=== PATIENT | female | born 1975 | race Caucasian/White ===

== ENCOUNTER 2023-02-22 19:52 | Inpatient (IN) ==
[2023-02-22] MEDS ORDERED: NS 1,000 ML IV 1,000 ML IV ONE (20:33)
--- NOTE | 2023-02-22 20:36 | DR.HYPOGLY ---
HPI Time Seen Time Seen by Provider: 02/22/23 20:31 PCP Primary Care Physician: KIRAN Complaint Chief Complaint:: EMS STATES" PATIENT WAS AMS TODAY AND HAS NOT EATIEN ANYTHING. PT COULD NOT FIND HER GLUCOMETER TODAY AND HAS NOT CHECKED IT AT ALL TODAY. PT FELL EARLIER TODAY IN THE BATH TUB AND FAMILY THOUGHT SHE TOOK TO [facility]." BS IN EMS WAS 579 Self Treatment fo Chief Complaint: NONE COVID-19 Coronavirus risk:travel/contact w/high risk person: No Has patient experienced Coronavirus symptoms: No Nurses notes reviewed Nurses Notes Review: Yes Source History Provided: Patient, Family Member and EMS Mode of Arrival Mode of Arrival: EMS Timing Onset of Chief Complaint: 02/22/23 Came on: Gradually Duration Duration: Unknown Context Symptoms: Generalized weakness History of: Diabetes Prehospital care: None PMH PMH Past Medical History: Yes Past Medical History: Anxiety, Diabetes and Hypertension Past Medical History Comment: FIBRO Past Surgical History: Yes Surgical History: Hysterectomy Past Surgical History Comment: LIPROTRIPSY Family History History of Family Medical Conditions: Yes Family Medical History: Diabetes Mellitus Social History Does any household member use tobacco: No Do you use any recreational Drugs:: No Lives With: Family Lives Where: Home Travel Risk Coronavirus risk:travel/contact w/high risk person: No Has patient experienced Coronavirus symptoms: No Infectious screening In the last 2 months have you had wt loss of >10#?: NO Have you had fever, night sweats or hemotysis?: No Have you traveled outside the country in the last 6 months?: No Isolation: Standard ROS Review of Systems Constitutional: Malaise PE Vital Signs Vitals: Vital Signs Temperature 94.7 F Pulse Rate 105 Respiratory Rate 40 Blood Pressure 121/59 O2 Sat by Pulse Oximetry 97 General Limitations: No Limitations General Appearance: In No Apparent Distress and Lethargic Eyes Eye exam: Normal Appearance, PERRL and EOMI ENT ENT Exam: Normal Exam Neck Neck Exam: Normal Inspection Chest Chest Inspection: Normal Inspection Respiratory Respiratory Exam: Normal Lung Sounds Bilat Cardiovascular Cardiovascular Exam: Regular Rate Abdominal Exam Abdominal Exam: Normal Inspection Extremities Extremities Exam: Normal Inspection Back Back Exam: Normal Inspection Neurologic Neurological Exam: Alert, Oriented X3, CN II-XII Intact, Normal Gait and Reflexes Normal Psychiatric Psychiatric Exam: Normal Affect and Normal Mood Skin Skin Exam: Warm, Dry and Intact COURSE Treatment Treatment: Labs, Insulin, IVFs Reevaluation 1st: Improved ROR Labs Reviewed Laboratory Results Reviewed?: Yes 02/22/23 20:40 02/22/23 20:40 Laboratory: WBC 13.9 X10^3/uL (3.6-10.0) H 02/22/23 20:40 RBC 4.78 X10^6/uL (3.5-5.4) 02/22/23 20:40 Hgb 13.4 g/dL (12.0-16.0) 02/22/23 20:40 Hct 47.1 % (36.0-47.0) H 02/22/23 20:40 MCV 98.6 fL (80.0-100.0) 02/22/23 20:40 MCH 28.0 pg (27.0-34.0) 02/22/23 20:40 MCHC 28.4 g/dL (33.0-35.0) L 02/22/23 20:40 RDW 15.8 % (11.6-16.5) 02/22/23 20:40 Plt Count 256 X10^3/uL (150.0-450.0) 02/22/23 20:40 MPV 10.6 fL (7.4-11.0) 02/22/23 20:40 Neut % (Auto) 88.1 % (42.0-75.0) H 02/22/23 20:40 Lymph % (Auto) 7.5 % (21.0-51.0) L 02/22/23 20:40 [place] % (Auto) 3.8 % (0.0-13.0) 02/22/23 20:40 Eos % (Auto) 0.0 % (0.9-2.9) L 02/22/23 20:40 Baso % (Auto) 0.6 % (0.2-1.0) 02/22/23 20:40 Neut # (Auto) 12.2 x10^3/uL (2.2-4.8) H 02/22/23 20:40 Lymph # (Auto) 1.0 X10^3/uL (1.3-2.9) L 02/22/23 20:40 [place] # (Auto) 0.5 x10^3/uL (0.3-0.8) 02/22/23 20:40 Eos # (Auto) 0.0 x10^3/uL (0.0-0.2) 02/22/23 20:40 Baso # (Auto) 0.1 X10^3/uL (0.0-0.1) 02/22/23 20:40 Absolute Nucleated RBC 0.1 /100WBC 02/22/23 20:40 Sodium 113 mmol/L (136-145) L* 02/22/23 20:40 Corrected Sodium 143 mmol/L (136-145) 02/22/23 20:40 Potassium 6.9 mmol/L (3.5-5.1) H* 02/22/23 20:40 Chloride 82 mmol/L (98-107) L 02/22/23 20:40 Carbon Dioxide 6.8 mmol/L (21-32) L* 02/22/23 20:40 BUN 38 mg/dL (7-18) H 02/22/23 20:40 Creatinine 1.94 mg/dL (0.55-1.02) H 02/22/23 20:40 Est GFR (MDRD) Af Amer 35 (>60) L 02/22/23 20:40 Est GFR (MDRD) Non-Af 29 (>60) L 02/22/23 20:40 Glucose 1337 mg/dL (65-99) H* 02/22/23 20:40 POC Glucose (mg/dL) > 600 mg/dL (65-99) 02/22/23 20:19 Calcium 7.8 mg/dL (8.5-10.1) L 02/22/23 20:40 Corrected Calcium 8.7 mg/dL (8.5-10.1) 02/22/23 20:40 Total Bilirubin 0.80 mg/dL (0.2-1.0) 02/22/23 20:40 AST 25 Units/L (15-37) 02/22/23 20:40 ALT 103 Units/L (12-78) H 02/22/23 20:40 Alkaline Phosphatase 205 Units/L (46-116) H 02/22/23 20:40 Total Protein 7.2 g/dL (6.4-8.2) 02/22/23 20:40 Albumin 2.9 g/dL (3.4-5.0) L 02/22/23 20:40 Globulin 4.3 g/dL (2.5-4.5) 02/22/23 20:40 Albumin/Globulin Ratio 0.7 Ratio (1.1-2.1) L 02/22/23 20:40 Specimen Type Clean catch urine 02/22/23 21: Urine Color Straw (YELLOW) 02/22/23: Urine Appearance Clear (CLEAR) 02/22/23: Urine pH 5.0 (5.0 - 8.0) 02/22/23: Ur Specific [place] 1.015 (1.000-1.030) 02/22/23: Urine Protein 2+ (NEGATIVE) 02/22/23: Urine Glucose (UA) 4+ (NEGATIVE) 02/22/23: Urine Ketones 4+ (NEGATIVE) 02/22/23: Urine Blood 2+ (NEGATIVE) 02/22/23: Urine Nitrite Negative (NEGATIVE) 02/22/23: Urine Bilirubin Negative (NEGATIVE) 02/22/23 21: Urine Urobilinogen Normal (NORMAL) 02/22/23: Ur Leukocyte Esterase Negative (NEGATIVE) 02/22/23: Urine RBC 0-2 /HPF (0-3) 02/22/23: Urine WBC None seen /HPF (0-5) 02/22/23 21: Ur Squamous Epith Cells Rare /HPF (NEGATIVE) 02/22/23 21: Amorphous Sediment 1+ /HPF (NEGATIVE) 02/22/23: Urine Bacteria Trace /HPF (NEGATIVE) 02/22/23 21: Urine Mucus Few /HPF (NEGATIVE) 02/22/23: Ur Culture Indicated? No/not indicated 02/22/23: Urine Opiates Screen Negative (NEG=<300) 02/22/23: Urine Methadone Screen TNP 02/22/23: Ur Barbiturates Screen Negative (NEG=<200) 02/22/23: Ur Phencyclidine Scrn Negative (NEG=<25) 02/22/23: Ur Amphetamines Screen Negative (NEG=<1000) 02/22/23: U Benzodiazepines Scrn Negative (NEG=<200) 02/22/23 21:23 Urine Cocaine Screen Negative (NEG=<300) 02/22/23 21:23 U Marijuana (THC) Screen Negative (NEG=<50) 02/22/23 21:23 Acetone, Semi-Quant Large (NEGATIVE) H 02/22/23 20:40 XRAY XRAY Interpreted by: Radiologist Opioid Opioid Risk Tool Age (Ja box if 16-45): No History of Preadolescent Sexual Abuse: No Total: 0 Total Score Risk Category: Low Risk Copyright: Gurdeep DUMONT predicting aberrant behaviors Discharge Plan Diagnosis Discharge Problem: Hyperglycemia Discharge Plan Patient Disposition: ADMITTED INPATIENT Condition: Stable Prescriptions: No Action cyclobenzaprine 10 mg tablet 10 mg PO BID PRN (Reason: muscle spasm) gabapentin 600 mg tablet 600 mg PO TID PRN (Reason: pain) diclofenac sodium 75 mg tablet,delayed release (DR/EC) 75 mg PO BID PRN (Reason: pain) lisinopril 5 mg tablet 5 mg PO QDAY metoprolol succinate 25 mg tablet extended release 24 hr 25 mg PO QDAY glipizide 5 mg tablet 5 mg PO BID insulin aspart U-100 [Novolog FlexPen U-100 Insulin] 100 unit/mL (3 mL) insulin pen 40 unit SUBCUT TID duloxetine 60 mg capsule,delayed release(DR/EC) 60 mg PO QDAY insulin degludec [Tresiba FlexTouch U-200] 200 unit/mL (3 mL) insulin pen 80 unit SUBCUT QDAY Farxiga 5 mg tablet 5 mg PO QDAY Ozempic 0.25 mg or 0.5 mg (2 mg/3 mL) pen injector 0.2 mg SUBCUT QWEEK Health Concerns: Post Hospitalization: new medications and changes needed to prevent readmission or further decline. Pt educated and given instructions on all concerns. Plan of Treatment: Continue with present treatment and follow up plan. Pt is to keep follow up appointment as instructed and take medications as ordered. Follow ups/Referrals Follow ups/Referrals: NFD,None [Primary Care Provider] - 3 days
[2023-02-22] MEDS ORDERED: NS 1,000 ML IV 1,000 ML ONE ×4 (20:37→23:04)
[2023-02-22 20:55] LABS: BASOPHILS # (AUTO) 0.1 X10^3/uL (0.0-0.1); MONOCYTES # (AUTO) 0.5 x10^3/uL (0.3-0.8)
[2023-02-22 20:59] LABS: MEAN CORPUSCULAR HGB CONC 28.4 g/dL (33.0-35.0); PLATELET COUNT 256 X10^3/uL (150.0-450.0)
[2023-02-22 21:06] LABS: ALBUMIN 2.9 g/dL (3.4-5.0); CALCIUM 7.8 mg/dL (8.5-10.1); COR CA(FOR HYPOALB) 8.7 mg/dL (8.5-10.1); CREATININE 1.94 mg/dL (0.55-1.02); TOTAL PROTEIN 7.2 g/dL (6.4-8.2)
[2023-02-22] MEDS ORDERED: NovoLIN R (or HumuLIN R) ONE (21:14)
[2023-02-22 21:18] LABS: HEMOGLOBIN 13.4 g/dL (12.0-16.0); RED BLOOD COUNT 4.78 X10^6/uL (3.5-5.4); WHITE BLOOD COUNT 13.9 X10^3/uL (3.6-10.0)
[2023-02-22 21:19] LABS: BASOPHILS % (AUTO) 0.6 % (0.2-1.0); HEMATOCRIT 47.1 % (36.0-47.0); LYMPHOCYTES % (AUTO) 7.5 % (21.0-51.0); MEAN CORPUSCULAR VOLUME 98.6 fL (80.0-100.0); MEAN PLATELET VOLUME 10.6 fL (7.4-11.0); MONOCYTES % (AUTO) 3.8 % (0.0-13.0); NEUTROPHILS # (AUTO) 12.2 x10^3/uL (2.2-4.8); NEUTROPHILS % (AUTO) 88.1 % (42.0-75.0); RED CELL DISTRIBUTION WIDTH 15.8 % (11.6-16.5)
[2023-02-22 21:28] LABS: CARBON DIOXIDE 6.8 mmol/L (21-32); POTASSIUM 6.9 mmol/L (3.5-5.1)
[2023-02-22] MEDS: NS 1,000 ML IV 1,000 ML IV SCH (21:28)
[2023-02-22] MEDS: NovoLIN R (or HumuLIN R) SUBCUT PRN (21:32)
[2023-02-22] MEDS ORDERED: SODIUM BICARBONATE 8.4% INJ ADULT 50 ML in NS 250 ML IV 250 ML IV ONE (21:37)
[2023-02-22 21:39] LABS: BILIRUBIN,URINE NEGATIVE (NEGATIVE); BLOOD/HEMOGLOBIN,URINE 2+ (NEGATIVE); GLUCOSE, URINE 4+ (NEGATIVE); KETONES,URINE 4+ (NEGATIVE); LEUKOCYTE ESTERASE ,URINE NEGATIVE (NEGATIVE); NITRITES,URINE NEGATIVE (NEGATIVE); PROTEIN,URINE 2+ (NEGATIVE); UROBILINOGEN,URINE NORMAL (NORMAL)
[2023-02-22] MEDS ORDERED: KAYEXALATE SUSP ONE (21:42)
[2023-02-22] MEDS ORDERED: SODIUM BICARBONATE 8.4% INJ ADULT ONE (21:42)
[2023-02-22] MEDS ORDERED: NS 250 ML IV 250 ML IV ONE (21:42)
[2023-02-22] MEDS ORDERED: MYXREDLIN 100 UNIT/100 ML BAG 100 UNIT/100 ML PLAST..BAG IV ONE (21:54)
[2023-02-22 21:57] LABS: APPEARANCE,URINE CLEAR (CLEAR); COLOR,URINE STRAW (YELLOW); RBC,URINE 0-2 /HPF (0-3)
[2023-02-22 21:58] LABS: BACTERIA,URINE TRACE /HPF (NEGATIVE); SQUAMOUS EPITHELIAL CELL,UR RARE /HPF (NEGATIVE)
[2023-02-22] MEDS ORDERED: KAYEXALATE SUSP PO SCH (22:00)
--- NOTE | 2023-02-22 22:39 | EKG ---
Test Reason : Hyperkalemia Blood Pressure : */* mmHG Vent. Rate : 109 BPM Atrial Rate : 109 BPM P-R Int : 148 ms QRS Dur : 88 ms QT Int : 354 ms P-R-T Axes : 51 30 43 degrees QTc Int : 476 ms Sinus tachycardia Poor R-wave progression Otherwise normal ECG No previous ECGs available Confirmed by Bay Marti MD ([id number]) on 02/23/2023 1:10:44 PM Referred By: Confirmed By: Bay Marti MD
[2023-02-22 23:07] LABS: ABG HCO3 < 3.0 mmol/L (22-26)
[2023-02-22] MEDS: MYXREDLIN 100 UNIT/100 ML BAG 100 UNIT/100 ML PLAST..BAG IV PRN (23:25)
[2023-02-23 02:54] VITALS: BMI 33.4
[2023-02-23 04:27] LABS: BASOPHILS # (AUTO) 0.1 X10^3/uL (0.0-0.1); BASOPHILS % (AUTO) 0.9 % (0.2-1.0); HEMATOCRIT 41.6 % (36.0-47.0); HEMOGLOBIN 13.7 g/dL (12.0-16.0); LYMPHOCYTES # (AUTO) 1.3 X10^3/uL (1.3-2.9); LYMPHOCYTES % (AUTO) 12.6 % (21.0-51.0); MEAN CORPUSCULAR VOLUME 84.9 fL (80.0-100.0); MEAN PLATELET VOLUME 9.9 fL (7.4-11.0); MONOCYTES # (AUTO) 0.7 x10^3/uL (0.3-0.8); MONOCYTES % (AUTO) 6.7 % (0.0-13.0); NEUTROPHILS # (AUTO) 8.5 x10^3/uL (2.2-4.8); NEUTROPHILS % (AUTO) 79.8 % (42.0-75.0); PLATELET COUNT 180 X10^3/uL (150.0-450.0); RED CELL DISTRIBUTION WIDTH 14.2 % (11.6-16.5); WHITE BLOOD COUNT 10.7 X10^3/uL (3.6-10.0)
[2023-02-23 04:41] LABS: ALBUMIN 2.7 g/dL (3.4-5.0); CALCIUM 7.7 mg/dL (8.5-10.1); COR CA(FOR HYPOALB) 8.7 mg/dL (8.5-10.1); CREATININE 1.78 mg/dL (0.55-1.02); POTASSIUM 3.2 mmol/L (3.5-5.1); TOTAL PROTEIN 6.6 g/dL (6.4-8.2)
[2023-02-23 04:43] LABS: CARBON DIOXIDE 11.1 mmol/L (21-32)
[2023-02-23] MEDS: NS 1,000 ML IV 1,000 ML IV SCH ×3 (06:47→22:10)
[2023-02-23] MEDS: MYXREDLIN 100 UNIT/100 ML BAG 100 UNIT/100 ML PLAST..BAG IV PRN (06:47)
[2023-02-23] MEDS ORDERED: KAYEXALATE SUSP PO SCH (09:00)
[2023-02-23 09:17] LABS: ABG ALLEN TEST POS; ABG BASE EXCESS -11.1 mmol/L (-2.0-2.0); ABG HCO3 15.4 mmol/L (22-26)
[2023-02-23] MEDS: PROTONIX INJ 40 MG VIAL IVP SCH (13:49)
--- NOTE | 2023-02-23 17:35 | RAD ---
EXAM:CHEST, 1 VIEWHISTORY:ASPIRATION;COMPARISON:None. .br.br.br.br.br airspace disease.Pleural space: no pneumothorax or effusion.Bones: the bony thorax appears age appropriate.IMPRESSION:1. Borderline heart size.THIS IS AN ELECTRONICALLY VERIFIED FINAL [id number]/23/2023 5:32 PM - Electronically signed by Alan Samano DO
[2023-02-23] MEDS: SNACK - Diabetic Appropriate PO SCH (20:32)
--- NOTE | 2023-02-23 21:43 | DR.H&P ---
H&P History & Physical for Day of: H&P Date: 02/23/23 Chief Complaint Chief Complaint: Altered mental status Allergies Allergies Allergy/AdvReac Type Severity Reaction Status Date / Time Sulfa (Sulfonamide Allergy Verified 02/22/23 22:04 Antibiotics) [SULFA] History of Present Illness History of Present Illness: This is a 47-year-old white female who developed altered mental status last night. EMS was called because the patient's family thought she took too much medication. She was found to have a blood sugar in the 500s. Because of this the decided to bring him to [facility] emergency department. When he checked her blood sugar there it was approximately 1300 and something. Serum acetone was checked and showed that she had a large amount of serum acetone. She was started on insulin drip protocol and started on IV fluid. We elected to go ahead admitted to the ICU so we could continue to run the insulin drip per protocol and give her bicarbonate to her IV fluid. This morning when I saw the patient she was not arousable but she was moving around in bed. Hyperkalemia that she had in the emergency department last night has resolved this morning secondary to the IV insulin that she was given. She had Kayexalate ordered but they were not able to give it to her as she never woke up enough for her to receive it. In the meantime we will continue the insulin drip per protocol along with IV fluids. We will plan on repeating routine labs tomorrow morning along with a serum acetone and ABG. We will also check a chest x-ray to make sure she does not have underlying respiratory infection. Urinalysis was done and it shows that she does not have a UTI. Past Medical History Past Medical History: Anxiety, Diabetes and Hypertension Past Surgical History Surgical History: Hysterectomy Family History Family Medical History: Diabetes Mellitus, VT and Coronary Artery Disease Social History Does patient currently use any type of tobacco product: No Have you used tobacco products in the last 12 months: No Type of Tobacco Use: None Does any household member use tobacco: No Alcohol Use: None Drug Use: None Medications Home Medications: Home Medications Medication Instructions Recorded Confirmed Type cyclobenzaprine 10 mg tablet 10 mg PO BID PRN muscle spasm 02/22/23 02/22/23 History dapagliflozin propanediol 5 mg 5 mg PO QDAY 02/22/23 02/22/23 History tablet (Farxiga) diclofenac sodium 75 mg 75 mg PO BID PRN pain 02/22/23 02/22/23 History tablet,delayed release duloxetine 60 mg capsule,delayed 60 mg PO QDAY 02/22/23 02/22/23 History release gabapentin 600 mg tablet 600 mg PO TID PRN pain 02/22/23 02/22/23 History glipizide 5 mg tablet 5 mg PO BID 02/22/23 02/22/23 History insulin aspart U-100 100 unit/mL 40 unit subcut TID 02/22/23 02/22/23 History (3 mL) subcutaneous pen (Novolog FlexPen U-100 Insulin aspart) insulin degludec 200 unit/mL (3 80 unit subcut QDAY 02/22/23 02/22/23 History mL) subcutaneous pen (Tresiba FlexTouch U-200 insulin) lisinopril 5 mg tablet 5 mg PO QDAY 02/22/23 02/22/23 History metoprolol succinate 25 mg 25 mg PO QDAY 02/22/23 02/22/23 History tablet,extended release 24 hr semaglutide 0.25 mg or 0.5 mg (2 0.2 mg subcut QWEEK 02/22/23 02/22/23 History mg/3 mL) subcutaneous pen injector (Ozempic) Labs 02/23/23 04:13 02/23/23 04:13 Labs: Laboratory WBC 10.7 X10^3/uL (3.6-10.0) H 02/23/23 04:13 RBC 4.90 X10^6/uL (3.5-5.4) 02/23/23 04:13 Hgb 13.7 g/dL (12.0-16.0) 02/23/23 04:13 Hct 41.6 % (36.0-47.0) 02/23/23 04:13 MCV 84.9 fL (80.0-100.0) 02/23/23 04:13 MCH 28.0 pg (27.0-34.0) 02/23/23 04:13 MCHC 33.0 g/dL (33.0-35.0) 02/23/23 04:13 RDW 14.2 % (11.6-16.5) 02/23/23 04:13 Plt Count 180 X10^3/uL (150.0-450.0) 02/23/23 04:13 MPV 9.9 fL (7.4-11.0) 02/23/23 04:13 Neut % (Auto) 79.8 % (42.0-75.0) H 02/23/23 04:13 Lymph % (Auto) 12.6 % (21.0-51.0) L 02/23/23 04:13 [place] % (Auto) 6.7 % (0.0-13.0) 02/23/23 04:13 Eos % (Auto) 0.0 % (0.9-2.9) L 02/23/23 04:13 Baso % (Auto) 0.9 % (0.2-1.0) 02/23/23 04:13 Neut # (Auto) 8.5 x10^3/uL (2.2-4.8) H 02/23/23 04:13 Lymph # (Auto) 1.3 X10^3/uL (1.3-2.9) 02/23/23 04:13 [place] # (Auto) 0.7 x10^3/uL (0.3-0.8) 02/23/23 04:13 Eos # (Auto) 0.0 x10^3/uL (0.0-0.2) 02/23/23 04:13 Baso # (Auto) 0.1 X10^3/uL (0.0-0.1) 02/23/23 04:13 Absolute Nucleated RBC 0.0 /100WBC 02/23/23 04:13 Sample Site [place] 02/23/23 09:12 ABG pH 7.240 (7.35-7.45) L 02/23/23 09:12 ABG pCO2 36.0 mmHg (35.0-45.0) 02/23/23 09:12 ABG pO2 88.0 mmHg (80.0-100.0) 02/23/23 09:12 ABG HCO3 15.4 mmol/L (22-26) L* 02/23/23 09:12 ABG O2 Saturation 95.0 % (90-100) 02/23/23 09:12 ABG Base Excess -11.1 mmol/L (-2.0-2.0) L 02/23/23 09:12 Gus Test Pos 02/23/23 09:12 A-a Gradient 67.0 mmHg 02/23/23 09:12 FiO2 28.0 02/23/23 09:12 Blood Gas Comments Pt rosemary well elj 02/23/23 09:12 Sodium 133 mmol/L (136-145) L 02/23/23 04:13 Corrected Sodium 147 mmol/L (136-145) H 02/23/23 04:13 Potassium 3.2 mmol/L (3.5-5.1) L 02/23/23 04:13 Chloride 101 mmol/L (98-107) 02/23/23 04:13 Carbon Dioxide 11.1 mmol/L (21-32) L* 02/23/23 04:13 BUN 42 mg/dL (7-18) H 02/23/23 04:13 Creatinine 1.78 mg/dL (0.55-1.02) H 02/23/23 04:13 Est GFR (MDRD) Af Amer 39 (>60) L 02/23/23 04:13 Est GFR (MDRD) Non-Af 32 (>60) L 02/23/23 04:13 Glucose 665 mg/dL (65-99) H* 02/23/23 04:13 POC Glucose (mg/dL) 177 mg/dL (65-99) H 02/23/23 21:20 Calcium 7.7 mg/dL (8.5-10.1) L 02/23/23 04:13 Corrected Calcium 8.7 mg/dL (8.5-10.1) 02/23/23 04:13 Magnesium 2.4 mg/dL (2.0-2.9) 02/23/23 04:13 Total Bilirubin 0.50 mg/dL (0.2-1.0) 02/23/23 04:13 AST 18 Units/L (15-37) 02/23/23 04:13 ALT 84 Units/L (12-78) H 02/23/23 04:13 Alkaline Phosphatase 170 Units/L (46-116) H 02/23/23 04:13 Total Protein 6.6 g/dL (6.4-8.2) 02/23/23 04:13 Albumin 2.7 g/dL (3.4-5.0) L 02/23/23 04:13 Globulin 3.9 g/dL (2.5-4.5) 02/23/23 04:13 Albumin/Globulin Ratio 0.7 Ratio (1.1-2.1) L 02/23/23 04:13 Specimen Type Clean catch urine 02/22/23 21: Urine Color Straw (YELLOW) 02/22/23: Urine Appearance Clear (CLEAR) 02/22/23 21: Urine pH 5.0 (5.0 - 8.0) 02/22/23 21: Ur Specific [place] 1.015 (1.000-1.030) 02/22/23: Urine Protein 2+ (NEGATIVE) 02/22/23: Urine Glucose (UA) 4+ (NEGATIVE) 02/22/23: Urine Ketones 4+ (NEGATIVE) 02/22/23 21: Urine Blood 2+ (NEGATIVE) 02/22/23 21: Urine Nitrite Negative (NEGATIVE) 02/22/23: Urine Bilirubin Negative (NEGATIVE) 02/22/23 21: Urine Urobilinogen Normal (NORMAL) 02/22/23: Ur Leukocyte Esterase Negative (NEGATIVE) 02/22/23: Urine RBC 0-2 /HPF (0-3) 02/22/23 21: Urine WBC None seen /HPF (0-5) 02/22/23 21: Ur Squamous Epith Cells Rare /HPF (NEGATIVE) 02/22/23 21: Amorphous Sediment 1+ /HPF (NEGATIVE) 02/22/23 21: Urine Bacteria Trace /HPF (NEGATIVE) 02/22/23 21: Urine Mucus Few /HPF (NEGATIVE) 02/22/23 21: Ur Culture Indicated? No/not indicated 02/22/23: Urine Opiates Screen Negative (NEG=<300) 02/22/23 21: Urine Methadone Screen TNP 02/22/23 21: Ur Barbiturates Screen Negative (NEG=<200) 02/22/23 21: Ur Phencyclidine Scrn Negative (NEG=<25) 02/22/23 21: Ur Amphetamines Screen Negative (NEG=<1000) 02/22/23 21: U Benzodiazepines Scrn Negative (NEG=<200) 02/22/23 21:23 Urine Cocaine Screen Negative (NEG=<300) 02/22/23 21:23 U Marijuana (THC) Screen Negative (NEG=<50) 02/22/23 21:23 Acetone, Semi-Quant Small (NEGATIVE) H 02/23/23 04:13 Review of Systems Constitutional: Other (Unable to obtain review of systems as the patient is not mentally alert enough at this time to answer questions.) Physical Exam Vital Signs: Vital Signs Temperature 97.8 F Temperature 97.6 F Pulse Rate 97 Pulse Rate 101 Pulse Rate 102 Pulse Rate 103 Pulse Rate 102 Pulse Rate 96 Pulse Rate 104 Pulse Rate 102 Pulse Rate 101 Pulse Rate 104 Pulse Rate 101 Pulse Rate 100 Pulse Rate 101 Pulse Rate 104 Pulse Rate 105 Pulse Rate 108 Pulse Rate 102 Pulse Rate 104 Pulse Rate 107 Pulse Rate 109 Pulse Rate 110 Pulse Rate 110 Respiratory Rate 22 Respiratory Rate 15 Respiratory Rate 21 Respiratory Rate 22 Respiratory Rate 20 Respiratory Rate 20 Respiratory Rate 23 Respiratory Rate 23 Respiratory Rate 19 Respiratory Rate 21 Respiratory Rate 18 Respiratory Rate 19 Respiratory Rate 20 Respiratory Rate 22 Respiratory Rate 21 Respiratory Rate 22 Respiratory Rate 30 Respiratory Rate 27 Respiratory Rate 27 Respiratory Rate 23 Respiratory Rate 25 Respiratory Rate 25 Blood Pressure 133/60 Blood Pressure 134/63 Blood Pressure 128/62 Blood Pressure 127/63 Blood Pressure 117/58 Blood Pressure 113/58 Blood Pressure 127/62 Blood Pressure 121/61 O2 Sat by Pulse Oximetry 100 O2 Sat by Pulse Oximetry 99 O2 Sat by Pulse Oximetry 99 O2 Sat by Pulse Oximetry 100 O2 Sat by Pulse Oximetry 98 O2 Sat by Pulse Oximetry 98 O2 Sat by Pulse Oximetry 99 O2 Sat by Pulse Oximetry 100 O2 Sat by Pulse Oximetry 99 O2 Sat by Pulse Oximetry 100 O2 Sat by Pulse Oximetry 100 O2 Sat by Pulse Oximetry 98 O2 Sat by Pulse Oximetry 99 O2 Sat by Pulse Oximetry 99 O2 Sat by Pulse Oximetry 100 O2 Sat by Pulse Oximetry 100 O2 Sat by Pulse Oximetry 100 O2 Sat by Pulse Oximetry 100 O2 Sat by Pulse Oximetry 99 O2 Sat by Pulse Oximetry 99 O2 Sat by Pulse Oximetry 99 O2 Sat by Pulse Oximetry 99 Oriented: Not Oriented and Unable to test Eyes: Normal Nose: Normal Respiratory: Clear Throughout Cardiovascular: Normal Auscultation: Bowel Sounds: Normal Palpation: Normal Tenderness: Normal Skin: Decreased [place] Musculoskeletal: Normal Psychiatric: Other (Unable to take a psychiatric evaluation as patient is not verbally communicating now.) Assessment/Plan (1) Diabetic ketoacidosis: Status: Acute Plan: Continue insulin drip per protocol. Check ABG and serum acetone to [place] morning. (2) Hyperkalemia: Status: Acute Plan: The patient's hyperkalemia has resolved since he was checked in the emergency department last night. Recheck potassium in the morning. (3) Hyponatremia: Status: Acute Plan: Normal saline IV fluid hydration. (4) Hyperglycemia: Status: Acute Plan: Insulin drip per protocol. (5) Coronary artery disease: Status: Acute Review H&P Reviewed: Yes Patient was examined?: Yes
[2023-02-24 04:59] LABS: ABG BASE EXCESS -7.5 mmol/L (-2.0-2.0)
[2023-02-24 05:00] LABS: ABG ALLEN TEST POS; ABG HCO3 17.3 mmol/L (22-26)
[2023-02-24 05:31] LABS: BASOPHILS % (AUTO) 0.3 % (0.2-1.0); EOSINOPHILS % (AUTO) 0.1 % (0.9-2.9); HEMATOCRIT 38.3 % (36.0-47.0); LYMPHOCYTES # (AUTO) 1.6 X10^3/uL (1.3-2.9); LYMPHOCYTES % (AUTO) 22.2 % (21.0-51.0); MEAN CORPUSCULAR HEMOGLOBIN 27.9 pg (27.0-34.0); MEAN CORPUSCULAR HGB CONC 33.8 g/dL (33.0-35.0); MEAN CORPUSCULAR VOLUME 82.4 fL (80.0-100.0); MEAN PLATELET VOLUME 9.5 fL (7.4-11.0); MONOCYTES # (AUTO) 0.4 x10^3/uL (0.3-0.8); NEUTROPHILS # (AUTO) 5.3 x10^3/uL (2.2-4.8); NEUTROPHILS % (AUTO) 71.4 % (42.0-75.0); PLATELET COUNT 143 X10^3/uL (150.0-450.0); RED BLOOD COUNT 4.65 X10^6/uL (3.5-5.4); RED CELL DISTRIBUTION WIDTH 14.5 % (11.6-16.5); WHITE BLOOD COUNT 7.4 X10^3/uL (3.6-10.0)
[2023-02-24 05:36] LABS: SERUM ACETONE SMALL (NEGATIVE)
[2023-02-24 05:58] LABS: ALANINE AMINOTRANSFERASE 67 Units/L (12-78); ALBUMIN 2.5 g/dL (3.4-5.0); ALKALINE PHOSPHATASE 147 Units/L (46-116); ASPARTATE AMINO TRANSFERASE 23 Units/L (15-37); BLOOD UREA NITROGEN 21 mg/dL (7-18); CALCIUM 7.4 mg/dL (8.5-10.1); CARBON DIOXIDE 16.8 mmol/L (21-32); CHLORIDE 108 mmol/L (98-107); COR CA(FOR HYPOALB) 8.6 mg/dL (8.5-10.1); COR NA(FOR HYPERGLY) 141 mmol/L (136-145); CREATININE 0.95 mg/dL (0.55-1.02); GLUCOSE 191 mg/dL (65-99); SODIUM 139 mmol/L (136-145); TOTAL PROTEIN 6.2 g/dL (6.4-8.2); eGFR NON BLACK RACES > 60 (>60)
[2023-02-24 06:02] LABS: POTASSIUM 2.7 mmol/L (3.5-5.1)
[2023-02-24] MEDS ORDERED: CONSULT PHARMACY - POTASSIUM & MAGNESIUM XX SCH ×2 (07:00→15:00)
[2023-02-24] MEDS: K-DUR TAB 20 MEQ PO SCH ×3 (09:14→14:48)
[2023-02-24] MEDS: PROTONIX INJ 40 MG VIAL IVP SCH (09:15)
[2023-02-24] MEDS: MYXREDLIN 100 UNIT/100 ML BAG 100 UNIT/100 ML PLAST..BAG IV PRN (12:44)
[2023-02-24] MEDS ORDERED: POTASSIUM CHL 60 MEQ/NS 0.45% 500 ML 60 MEQ/500 ML BAG IV ONE (15:00)
[2023-02-24] MEDS: NS 1,000 ML IV 1,000 ML IV SCH (15:28)
[2023-02-24] MEDS: SNACK - Diabetic Appropriate PO SCH (20:15)
[2023-02-25 04:52] LABS: BASOPHILS # (AUTO) 0.1 X10^3/uL (0.0-0.1); BASOPHILS % (AUTO) 0.9 % (0.2-1.0); EOSINOPHILS % (AUTO) 0.2 % (0.9-2.9); HEMATOCRIT 35.6 % (36.0-47.0); LYMPHOCYTES # (AUTO) 2.1 X10^3/uL (1.3-2.9); LYMPHOCYTES % (AUTO) 36.2 % (21.0-51.0); MEAN CORPUSCULAR HEMOGLOBIN 27.5 pg (27.0-34.0); MEAN CORPUSCULAR HGB CONC 33.7 g/dL (33.0-35.0); MEAN CORPUSCULAR VOLUME 81.4 fL (80.0-100.0); MEAN PLATELET VOLUME 9.2 fL (7.4-11.0); MONOCYTES # (AUTO) 0.4 x10^3/uL (0.3-0.8); MONOCYTES % (AUTO) 6.8 % (0.0-13.0); NEUTROPHILS # (AUTO) 3.2 x10^3/uL (2.2-4.8); NEUTROPHILS % (AUTO) 55.9 % (42.0-75.0); PLATELET COUNT 121 X10^3/uL (150.0-450.0); RED BLOOD COUNT 4.38 X10^6/uL (3.5-5.4); RED CELL DISTRIBUTION WIDTH 14.4 % (11.6-16.5); WHITE BLOOD COUNT 5.7 X10^3/uL (3.6-10.0)
[2023-02-25 05:00] LABS: ALANINE AMINOTRANSFERASE 46 Units/L (12-78); ALBUMIN 2.4 g/dL (3.4-5.0); ALKALINE PHOSPHATASE 132 Units/L (46-116); ASPARTATE AMINO TRANSFERASE 22 Units/L (15-37); BLOOD UREA NITROGEN 8 mg/dL (7-18); CALCIUM 7.6 mg/dL (8.5-10.1); CARBON DIOXIDE 21.4 mmol/L (21-32); CHLORIDE 107 mmol/L (98-107); COR CA(FOR HYPOALB) 8.9 mg/dL (8.5-10.1); COR NA(FOR HYPERGLY) 141 mmol/L (136-145); CREATININE 0.58 mg/dL (0.55-1.02); GLUCOSE 164 mg/dL (65-99); SODIUM 139 mmol/L (136-145); eGFR NON BLACK RACES > 60 (>60)
[2023-02-25 05:14] LABS: POTASSIUM 2.8 mmol/L (3.5-5.1)
[2023-02-25] MEDS ORDERED: CONSULT PHARMACY - POTASSIUM & MAGNESIUM XX SCH (06:00)
[2023-02-25] MEDS: NS 1,000 ML IV 1,000 ML IV SCH ×3 (06:29→18:45)
[2023-02-25] MEDS: PROTONIX INJ 40 MG VIAL IVP SCH (08:23)
[2023-02-25] MEDS: NS + KCL 20 MEQ/L 1,000 ML IV SCH ×2 (08:24→17:01)
[2023-02-25] MEDS ORDERED: K-DUR TAB 20 MEQ PO SCH (09:00)
[2023-02-25] MEDS: ZESTRIL TAB 5 MG PO SCH (10:24)
[2023-02-25] MEDS: LEVEMIR SC SCH (10:24)
[2023-02-25] MEDS: CYMBALTA PO SCH (10:24)
[2023-02-25] MEDS: FARXIGA PO SCH (10:25)
[2023-02-25] MEDS: TOPROL XL PO SCH (10:25)
--- NOTE | 2023-02-25 10:56 | PCM.PROG ---
Progress Note Progress Note for Day of Date of Exam: 02/24/23 Subjective Subjective: The patient is alert and awake this morning. She is answering questions appropriately today. I see that she still has a small amount of acetone so we will continue the insulin drip per protocol and repeat check her acetone level at noon. The new level shows small acetone. In the afternoon it was still positive. We decided to keep her overnight continue insulin drip and recheck acetone the following morning. with small acetone still so we repeated again at 4:00 also see that her potassium is low so we will correct that. Past Medical Family Social History Allergies: Allergies Sulfa (Sulfonamide Antibiotics) [SULFA] Allergy (Verified 02/22/23 22:04) Review of Systems ROS: No change since H&P Vital Signs and I&O's Vital Signs: Vital Signs Temperature 98.5 F Pulse Rate 85 Pulse Rate 75 Pulse Rate 74 Pulse Rate 72 Pulse Rate 69 Pulse Rate 73 Pulse Rate 80 Pulse Rate 82 Pulse Rate 77 Pulse Rate 77 Pulse Rate 81 Pulse Rate 78 Pulse Rate 74 Pulse Rate 75 Pulse Rate 75 Pulse Rate 76 Pulse Rate 78 Pulse Rate 78 Pulse Rate 77 Pulse Rate 79 Pulse Rate 75 Pulse Rate 79 Pulse Rate 71 Pulse Rate 79 Pulse Rate 75 Pulse Rate 77 Pulse Rate 79 Pulse Rate 76 Pulse Rate 79 Pulse Rate 81 Pulse Rate 77 Pulse Rate 74 Pulse Rate 72 Pulse Rate 69 Pulse Rate 71 Respiratory Rate 29 Respiratory Rate 19 Respiratory Rate 19 Respiratory Rate 18 Respiratory Rate 19 Respiratory Rate 20 Respiratory Rate 19 Respiratory Rate 21 Respiratory Rate 20 Respiratory Rate 20 Respiratory Rate 20 Respiratory Rate 26 Respiratory Rate 18 Respiratory Rate 12 Respiratory Rate 7 Respiratory Rate 12 Respiratory Rate 20 Respiratory Rate 20 Respiratory Rate 22 Respiratory Rate 25 Respiratory Rate 22 Respiratory Rate 21 Respiratory Rate 21 Respiratory Rate 39 Respiratory Rate 19 Respiratory Rate 19 Respiratory Rate 19 Respiratory Rate 19 Respiratory Rate 21 Respiratory Rate 19 Respiratory Rate 18 Respiratory Rate 19 Blood Pressure 152/72 Blood Pressure 152/69 Blood Pressure 151/72 Blood Pressure 176/81 Blood Pressure 136/61 Blood Pressure 136/61 Blood Pressure 141/67 Blood Pressure 141/67 Blood Pressure 128/64 Blood Pressure 128/64 Blood Pressure 133/62 Blood Pressure 133/62 O2 Sat by Pulse Oximetry 95 O2 Sat by Pulse Oximetry 96 O2 Sat by Pulse Oximetry 97 O2 Sat by Pulse Oximetry 97 O2 Sat by Pulse Oximetry 96 O2 Sat by Pulse Oximetry 96 O2 Sat by Pulse Oximetry 96 O2 Sat by Pulse Oximetry 96 O2 Sat by Pulse Oximetry 95 O2 Sat by Pulse Oximetry 94 O2 Sat by Pulse Oximetry 96 O2 Sat by Pulse Oximetry 97 O2 Sat by Pulse Oximetry 97 O2 Sat by Pulse Oximetry 96 O2 Sat by Pulse Oximetry 96 O2 Sat by Pulse Oximetry 97 O2 Sat by Pulse Oximetry 97 O2 Sat by Pulse Oximetry 96 O2 Sat by Pulse Oximetry 98 O2 Sat by Pulse Oximetry 97 O2 Sat by Pulse Oximetry 97 O2 Sat by Pulse Oximetry 97 O2 Sat by Pulse Oximetry 98 O2 Sat by Pulse Oximetry 98 O2 Sat by Pulse Oximetry 97 O2 Sat by Pulse Oximetry 99 O2 Sat by Pulse Oximetry 97 O2 Sat by Pulse Oximetry 96 O2 Sat by Pulse Oximetry 96 O2 Sat by Pulse Oximetry 96 O2 Sat by Pulse Oximetry 96 O2 Sat by Pulse Oximetry 97 O2 Sat by Pulse Oximetry 96 O2 Sat by Pulse Oximetry 97 O2 Sat by Pulse Oximetry 96 Intake and Output: Intake & Output 02/22/23 02/23/23 02/24/23 02/25/23 11:59 11:59 11:59 11:59 Intake Total 4352 / 4352 3515 / 3515 3088 / 3088 Output Total 3000 / 3000 3300 / 3300 805 / 805 Balance 1352 / 1352 215 / 215 2283 / 2283 Physical Exam Oriented: Not Oriented and Unable to test Eyes: Normal Nose: Normal Cardiovascular: Normal Auscultation: Bowel Sounds: Normal Tenderness: Normal Skin: Decreased Turgur Musculoskeletal: Normal Psychiatric: Other (Unable to take a psychiatric evaluation as patient is not verbally communicating now.) Speech Pattern: Clear and Appropriate Laboratory and Diagnostics 02/25/23 04:28 02/25/23 04:28 Labs: Laboratory WBC 5.7 X10^3/uL (3.6-10.0) 02/25/23 04:28 RBC 4.38 X10^6/uL (3.5-5.4) 02/25/23 04:28 Hgb 12.0 g/dL (12.0-16.0) 02/25/23 04:28 Hct 35.6 % (36.0-47.0) L 02/25/23 04:28 MCV 81.4 fL (80.0-100.0) 02/25/23 04:28 MCH 27.5 pg (27.0-34.0) 02/25/23 04:28 MCHC 33.7 g/dL (33.0-35.0) 02/25/23 04: RDW 14.4 % (11.6-16.5) 02/25/23 04:28 Plt Count 121 X10^3/uL (150.0-450.0) L 02/25/23 04:28 MPV 9.2 fL (7.4-11.0) 02/25/23 04: Neut % (Auto) 55.9 % (42.0-75.0) 02/25/23 04:28 Lymph % (Auto) 36.2 % (21.0-51.0) 02/25/23 04: [place] % (Auto) 6.8 % (0.0-13.0) 02/25/23 04: Eos % (Auto) 0.2 % (0.9-2.9) L 02/25/23 04: Baso % (Auto) 0.9 % (0.2-1.0) 02/25/23 04:28 Neut # (Auto) 3.2 x10^3/uL (2.2-4.8) 02/25/23 04:28 Lymph # (Auto) 2.1 X10^3/uL (1.3-2.9) 02/25/23 04:28 [place] # (Auto) 0.4 x10^3/uL (0.3-0.8) 02/25/23 04:28 Eos # (Auto) 0.0 x10^3/uL (0.0-0.2) 02/25/23 04:28 Baso # (Auto) 0.1 X10^3/uL (0.0-0.1) 02/25/23 04:28 Absolute Nucleated RBC 0.1 /100WBC 02/25/23 04:28 Sample Site Rr 02/24/23 05:00 ABG pH 7.340 (7.35-7.45) L 02/24/23 05:00 ABG pCO2 32.0 mmHg (35.0-45.0) L 02/24/23 05:00 ABG pO2 71.0 mmHg (80.0-100.0) L 02/24/23 05:00 ABG HCO3 17.3 mmol/L (22-26) L* 02/24/23 05:00 ABG O2 Saturation 93.0 % (90-100) 02/24/23 05:00 ABG Base Excess -7.5 mmol/L (-2.0-2.0) L 02/24/23 05:00 Gus Test Pos 02/24/23 05:00 A-a Gradient 39.0 mmHg 02/24/23 05:00 FiO2 21.0 02/24/23 05:00 Blood Gas Comments Chris well sw 02/24/23 05:00 Sodium 139 mmol/L (136-145) 02/25/23 04:28 Corrected Sodium 141 mmol/L (136-145) 02/25/23 04:28 Potassium 2.8 mmol/L (3.5-5.1) L* 02/25/23 04:28 Chloride 107 mmol/L (98-107) 02/25/23 04:28 Carbon Dioxide 21.4 mmol/L (21-32) 02/25/23 04:28 BUN 8 mg/dL (7-18) 02/25/23 04:28 Creatinine 0.58 mg/dL (0.55-1.02) 02/25/23 04:28 Est GFR (MDRD) Af Amer > 60 (>60) 02/25/23 04:28 Est GFR (MDRD) Non-Af > 60 (>60) 02/25/23 04:28 Glucose 164 mg/dL (65-99) H 02/25/23 04:28 POC Glucose (mg/dL) 163 mg/dL (65-99) H 02/25/23 09:50 Calcium 7.6 mg/dL (8.5-10.1) L 02/25/23 04:28 Corrected Calcium 8.9 mg/dL (8.5-10.1) 02/25/23 04:28 Magnesium 2.0 mg/dL (2.0-2.9) 02/25/23 04:28 Total Bilirubin 0.60 mg/dL (0.2-1.0) 02/25/23 04:28 AST 22 Units/L (15-37) 02/25/23 04:28 ALT 46 Units/L (12-78) 02/25/23 04:28 Alkaline Phosphatase 132 Units/L (46-116) H 02/25/23 04:28 Total Protein 6.0 g/dL (6.4-8.2) L 02/25/23 04:28 Albumin 2.4 g/dL (3.4-5.0) L 02/25/23 04:28 Globulin 3.6 g/dL (2.5-4.5) 02/25/23 04:28 Albumin/Globulin Ratio 0.7 Ratio (1.1-2.1) L 02/25/23 04:28 Specimen Type Clean catch urine 02/22/23 21: Urine Color Straw (YELLOW) 02/22/23 21: Urine Appearance Clear (CLEAR) 02/22/23 21: Urine pH 5.0 (5.0 - 8.0) 02/22/23 21: Ur Specific [place] 1.015 (1.000-1.030) 02/22/23 21: Urine Protein 2+ (NEGATIVE) 02/22/23 21: Urine Glucose (UA) 4+ (NEGATIVE) 02/22/23 21: Urine Ketones 4+ (NEGATIVE) 02/22/23 21: Urine Blood 2+ (NEGATIVE) 02/22/23 21: Urine Nitrite Negative (NEGATIVE) 02/22/23 21: Urine Bilirubin Negative (NEGATIVE) 02/22/23 21: Urine Urobilinogen Normal (NORMAL) 02/22/23 21: Ur Leukocyte Esterase Negative (NEGATIVE) 02/22/23 21: Urine RBC 0-2 /HPF (0-3) 02/22/23 21: Urine WBC None seen /HPF (0-5) 02/22/23 21: Ur Squamous Epith Cells Rare /HPF (NEGATIVE) 02/22/23 21: Amorphous Sediment 1+ /HPF (NEGATIVE) 02/22/23 21: Urine Bacteria Trace /HPF (NEGATIVE) 02/22/23 21: Urine Mucus Few /HPF (NEGATIVE) 02/22/23 21: Ur Culture Indicated? No/not indicated 02/22/23 21: Urine Opiates Screen Negative (NEG=<300) 02/22/23 21: Urine Methadone Screen TNP 02/22/23 21: Ur Barbiturates Screen Negative (NEG=<200) 02/22/23 21:23 Ur Phencyclidine Scrn Negative (NEG=<25) 02/22/23 21: Ur Amphetamines Screen Negative (NEG=<1000) 02/22/23: U Benzodiazepines Scrn Negative (NEG=<200) 02/22/23: Urine Cocaine Screen Negative (NEG=<300) 02/22/23: U Marijuana (THC) Screen Negative (NEG=<50) 02/22/23 21: Acetone, Semi-Quant Small (NEGATIVE) H 02/25/23 04:28 Plan (1) Diabetic ketoacidosis: Status: Acute Plan: Continue insulin drip per protocol. Check ABG and serum acetone tomorrow morning. (2) Hyperkalemia: Status: Acute Plan: The patient's hyperkalemia has resolved since he was checked in the emergency department last night. Recheck potassium in the morning. (3) Hyponatremia: Status: Acute Plan: Normal saline IV fluid hydration. (4) Hyperglycemia: Status: Acute Plan: Insulin drip per protocol. (5) Coronary artery disease: Status: Acute (6) Hypokalemia: Status: Acute
--- NOTE | 2023-02-25 11:57 | PCM.PROG ---
Progress Note Progress Note for Day of Date of Exam: 02/25/23 Subjective Subjective: Patient seen at bedside, no acute events. She is currently being treated for DKA, dehydration and hypokalemia. Patient's FSBG has improved and bicarb is normal. She is currently on insulin drip at 2 units. She has been tolerating PO intake and feels better. She has been ambulating to the bathroom. Labs/imaging reviewed - K:2.8 CO2: 21.4 Mg 2.0 Plan: will DC insulin drip and resume patient's home insulin Tresiba at 40 units daily and SSI. Restart home diabetic meds. Monitor FSBG. Continue hydration, replace K in fluids and PO. Monitor potassium level this afternoon. Monitor AM labs. Past Medical Family Social History Allergies: Allergies Sulfa (Sulfonamide Antibiotics) [SULFA] Allergy (Verified 02/22/23 22:04) Review of Systems ROS: No change since H&P Vital Signs and I&O's Vital Signs: Vital Signs Temperature 98.5 F Pulse Rate 85 Pulse Rate 75 Pulse Rate 74 Pulse Rate 72 Pulse Rate 69 Pulse Rate 73 Pulse Rate 80 Pulse Rate 82 Pulse Rate 77 Pulse Rate 77 Pulse Rate 81 Pulse Rate 78 Pulse Rate 74 Pulse Rate 75 Pulse Rate 75 Pulse Rate 76 Pulse Rate 78 Pulse Rate 78 Pulse Rate 77 Pulse Rate 79 Pulse Rate 75 Pulse Rate 79 Pulse Rate 71 Pulse Rate 79 Pulse Rate 75 Pulse Rate 77 Pulse Rate 79 Pulse Rate 76 Pulse Rate 79 Pulse Rate 81 Respiratory Rate 29 Respiratory Rate 19 Respiratory Rate 19 Respiratory Rate 18 Respiratory Rate 19 Respiratory Rate 20 Respiratory Rate 19 Respiratory Rate 21 Respiratory Rate 20 Respiratory Rate 20 Respiratory Rate 20 Respiratory Rate 26 Respiratory Rate 18 Respiratory Rate 12 Respiratory Rate 7 Respiratory Rate 12 Respiratory Rate 20 Respiratory Rate 20 Respiratory Rate 22 Respiratory Rate 25 Respiratory Rate 22 Respiratory Rate 21 Respiratory Rate 21 Respiratory Rate 39 Respiratory Rate 19 Respiratory Rate 19 Respiratory Rate 19 Blood Pressure 152/72 Blood Pressure 152/69 Blood Pressure 151/72 Blood Pressure 176/81 Blood Pressure 136/61 Blood Pressure 136/61 Blood Pressure 141/67 Blood Pressure 141/67 Blood Pressure 128/64 Blood Pressure 128/64 O2 Sat by Pulse Oximetry 95 O2 Sat by Pulse Oximetry 96 O2 Sat by Pulse Oximetry 97 O2 Sat by Pulse Oximetry 97 O2 Sat by Pulse Oximetry 96 O2 Sat by Pulse Oximetry 96 O2 Sat by Pulse Oximetry 96 O2 Sat by Pulse Oximetry 96 O2 Sat by Pulse Oximetry 95 O2 Sat by Pulse Oximetry 94 O2 Sat by Pulse Oximetry 96 O2 Sat by Pulse Oximetry 97 O2 Sat by Pulse Oximetry 97 O2 Sat by Pulse Oximetry 96 O2 Sat by Pulse Oximetry 96 O2 Sat by Pulse Oximetry 97 O2 Sat by Pulse Oximetry 97 O2 Sat by Pulse Oximetry 96 O2 Sat by Pulse Oximetry 98 O2 Sat by Pulse Oximetry 97 O2 Sat by Pulse Oximetry 97 O2 Sat by Pulse Oximetry 97 O2 Sat by Pulse Oximetry 98 O2 Sat by Pulse Oximetry 98 O2 Sat by Pulse Oximetry 97 O2 Sat by Pulse Oximetry 99 O2 Sat by Pulse Oximetry 97 O2 Sat by Pulse Oximetry 96 O2 Sat by Pulse Oximetry 96 O2 Sat by Pulse Oximetry 96 Intake and Output: Intake & Output 02/22/23 02/23/23 02/24/23 02/25/23 23:59 23:59 23:59 23:59 Intake Total 1000 / 1000 5645 / 5645 3235 / 3235 1075 / 1075 Output Total 1000 / 1000 4700 / 4700 1402 / 1402 3 / 3 Balance 0 / 0 945 / 945 1833 / 1833 1072 / 1072 Physical Exam Oriented: Normal Eyes: Normal Nose: Normal Respiratory: Normal Cardiovascular: Normal Auscultation: Bowel Sounds: Normal Tenderness: Normal Skin: Decreased Turgur Musculoskeletal: Normal Psychiatric: Normal Mood Description: Calm Affect: Normal Speech Pattern: Clear and Appropriate Laboratory and Diagnostics 02/25/23 04:28 02/25/23 04:28 Labs: Laboratory WBC 5.7 X10^3/uL (3.6-10.0) 02/25/23 04:28 RBC 4.38 X10^6/uL (3.5-5.4) 02/25/23 04:28 Hgb 12.0 g/dL (12.0-16.0) 02/25/23 04:28 Hct 35.6 % (36.0-47.0) L 02/25/23 04:28 MCV 81.4 fL (80.0-100.0) 02/25/23 04:28 MCH 27.5 pg (27.0-34.0) 02/25/23 04:28 MCHC 33.7 g/dL (33.0-35.0) 02/25/23 04:28 RDW 14.4 % (11.6-16.5) 02/25/23 04: Plt Count 121 X10^3/uL (150.0-450.0) L 02/25/23 04:28 MPV 9.2 fL (7.4-11.0) 02/25/23 04:28 Neut % (Auto) 55.9 % (42.0-75.0) 02/25/23 04: Lymph % (Auto) 36.2 % (21.0-51.0) 02/25/23 04:28 [place] % (Auto) 6.8 % (0.0-13.0) 02/25/23 04: Eos % (Auto) 0.2 % (0.9-2.9) L 02/25/23 04: Baso % (Auto) 0.9 % (0.2-1.0) 02/25/23 04:28 Neut # (Auto) 3.2 x10^3/uL (2.2-4.8) 02/25/23 04:28 Lymph # (Auto) 2.1 X10^3/uL (1.3-2.9) 02/25/23 04:28 [place] # (Auto) 0.4 x10^3/uL (0.3-0.8) 02/25/23 04:28 Eos # (Auto) 0.0 x10^3/uL (0.0-0.2) 02/25/23 04:28 Baso # (Auto) 0.1 X10^3/uL (0.0-0.1) 02/25/23 04: Absolute Nucleated RBC 0.1 /100WBC 02/25/23 04:28 Sample Site Rr 02/24/23 05:00 ABG pH 7.340 (7.35-7.45) L 02/24/23 05:00 ABG pCO2 32.0 mmHg (35.0-45.0) L 02/24/23 05:00 ABG pO2 71.0 mmHg (80.0-100.0) L 02/24/23 05:00 ABG HCO3 17.3 mmol/L (22-26) L* 02/24/23 05:00 ABG O2 Saturation 93.0 % (90-100) 02/24/23 05:00 ABG Base Excess -7.5 mmol/L (-2.0-2.0) L 02/24/23 05:00 Gus Test Pos 02/24/23 05:00 A-a Gradient 39.0 mmHg 02/24/23 05:00 FiO2 21.0 02/24/23 05:00 Blood Gas Comments Chris well sw 02/24/23 05:00 Sodium 139 mmol/L (136-145) 02/25/23 04:28 Corrected Sodium 141 mmol/L (136-145) 02/25/23 04:28 Potassium 2.8 mmol/L (3.5-5.1) L* 02/25/23 04:28 Chloride 107 mmol/L (98-107) 02/25/23 04:28 Carbon Dioxide 21.4 mmol/L (21-32) 02/25/23 04:28 BUN 8 mg/dL (7-18) 02/25/23 04:28 Creatinine 0.58 mg/dL (0.55-1.02) 02/25/23 04:28 Est GFR (MDRD) Af Amer > 60 (>60) 02/25/23 04:28 Est GFR (MDRD) Non-Af > 60 (>60) 02/25/23 04:28 Glucose 164 mg/dL (65-99) H 02/25/23 04:28 POC Glucose (mg/dL) 163 mg/dL (65-99) H 02/25/23 09:50 Calcium 7.6 mg/dL (8.5-10.1) L 02/25/23 04:28 Corrected Calcium 8.9 mg/dL (8.5-10.1) 02/25/23 04:28 Magnesium 2.0 mg/dL (2.0-2.9) 02/25/23 04:28 Total Bilirubin 0.60 mg/dL (0.2-1.0) 02/25/23 04:28 AST 22 Units/L (15-37) 02/25/23 04:28 ALT 46 Units/L (12-78) 02/25/23 04:28 Alkaline Phosphatase 132 Units/L (46-116) H 02/25/23 04:28 Total Protein 6.0 g/dL (6.4-8.2) L 02/25/23 04:28 Albumin 2.4 g/dL (3.4-5.0) L 02/25/23 04:28 Globulin 3.6 g/dL (2.5-4.5) 02/25/23 04:28 Albumin/Globulin Ratio 0.7 Ratio (1.1-2.1) L 02/25/23 04:28 Specimen Type Clean catch urine 02/22/23 21: Urine Color Straw (YELLOW) 02/22/23 21: Urine Appearance Clear (CLEAR) 02/22/23 21: Urine pH 5.0 (5.0 - 8.0) 02/22/23 21: Ur Specific [place] 1.015 (1.000-1.030) 02/22/23 21: Urine Protein 2+ (NEGATIVE) 02/22/23 21: Urine Glucose (UA) 4+ (NEGATIVE) 02/22/23 21: Urine Ketones 4+ (NEGATIVE) 02/22/23 21: Urine Blood 2+ (NEGATIVE) 02/22/23 21: Urine Nitrite Negative (NEGATIVE) 02/22/23 21: Urine Bilirubin Negative (NEGATIVE) 02/22/23 21: Urine Urobilinogen Normal (NORMAL) 02/22/23 21: Ur Leukocyte Esterase Negative (NEGATIVE) 02/22/23 21: Urine RBC 0-2 /HPF (0-3) 02/22/23 21: Urine WBC None seen /HPF (0-5) 02/22/23 21: Ur Squamous Epith Cells Rare /HPF (NEGATIVE) 02/22/23 21: Amorphous Sediment 1+ /HPF (NEGATIVE) 02/22/23 21: Urine Bacteria Trace /HPF (NEGATIVE) 02/22/23 21: Urine Mucus Few /HPF (NEGATIVE) 02/22/23 21: Ur Culture Indicated? No/not indicated 02/22/23 21: Urine Opiates Screen Negative (NEG=<300) 02/22/23 21: Urine Methadone Screen TNP 02/22/23 21: Ur Barbiturates Screen Negative (NEG=<200) 02/22/23 21: Ur Phencyclidine Scrn Negative (NEG=<25) 02/22/23 21: Ur Amphetamines Screen Negative (NEG=<1000) 02/22/23 21:23 U Benzodiazepines Scrn Negative (NEG=<200) 02/22/23 21:23 Urine Cocaine Screen Negative (NEG=<300) 02/22/23 21:23 U Marijuana (THC) Screen Negative (NEG=<50) 02/22/23 21:23 Acetone, Semi-Quant Small (NEGATIVE) H 02/25/23 04:28 Plan (1) Diabetic ketoacidosis: Status: Acute Qualifiers: Diabetes mellitus complication detail: without coma Diabetes mellitus type: type 2 Qualified Code(s): E11.10 - Type 2 diabetes mellitus with ketoacidosis without coma (2) Hypokalemia: Status: Acute (3) Hyponatremia: Status: Acute Plan: Normal saline IV fluid hydration. (4) Coronary artery disease: Status: Acute Qualifiers: Associated angina: without angina Coronary Disease-Associated Artery/Lesion type: [place] artery [place] vs. transplanted heart: [place] heart Qualified Code(s): I25.10 - Atherosclerotic heart disease of [place] coronary artery without angina pectoris (5) Diabetes: Status: Acute Qualifiers: Diabetes mellitus complication status: with hyperglycemia Diabetes mellitus intermediate insulin use: with manager intermediate use Diabetes mellitus type: type 2 Qualified Code(s): E11.65 - Type 2 diabetes mellitus with hyperglycemia; Z79.4 - longterm (current) use of insulin
[2023-02-25] MEDS: NovoLIN R (or HumuLIN R) SUBCUT PRN (16:25)
[2023-02-25] MEDS: SNACK - Diabetic Appropriate PO SCH (19:34)
[2023-02-25] MEDS ORDERED: SNACK - Diabetic Appropriate PO SCH (20:00)
[2023-02-25] MEDS: GLUCOTROL PO SCH (20:18)
[2023-02-26] MEDS: NS + KCL 20 MEQ/L 1,000 ML IV SCH ×3 (00:44→20:18)
[2023-02-26 05:04] LABS: BASOPHILS % (AUTO) 0.8 % (0.2-1.0); EOSINOPHILS % (AUTO) 0.7 % (0.9-2.9); HEMATOCRIT 36.2 % (36.0-47.0); HEMOGLOBIN 12.3 g/dL (12.0-16.0); LYMPHOCYTES # (AUTO) 2.4 X10^3/uL (1.3-2.9); LYMPHOCYTES % (AUTO) 42.9 % (21.0-51.0); MEAN CORPUSCULAR HEMOGLOBIN 27.6 pg (27.0-34.0); MEAN CORPUSCULAR VOLUME 81.1 fL (80.0-100.0); MEAN PLATELET VOLUME 8.9 fL (7.4-11.0); MONOCYTES # (AUTO) 0.3 x10^3/uL (0.3-0.8); MONOCYTES % (AUTO) 5.9 % (0.0-13.0); NEUTROPHILS # (AUTO) 2.8 x10^3/uL (2.2-4.8); NEUTROPHILS % (AUTO) 49.7 % (42.0-75.0); PLATELET COUNT 125 X10^3/uL (150.0-450.0); RED BLOOD COUNT 4.47 X10^6/uL (3.5-5.4); RED CELL DISTRIBUTION WIDTH 14.5 % (11.6-16.5); WHITE BLOOD COUNT 5.7 X10^3/uL (3.6-10.0)
[2023-02-26 05:21] LABS: ALANINE AMINOTRANSFERASE 40 Units/L (12-78); ALBUMIN 2.3 g/dL (3.4-5.0); ALKALINE PHOSPHATASE 171 Units/L (46-116); ASPARTATE AMINO TRANSFERASE 30 Units/L (15-37); BLOOD UREA NITROGEN 5 mg/dL (7-18); CALCIUM 7.3 mg/dL (8.5-10.1); CARBON DIOXIDE 23.1 mmol/L (21-32); CHLORIDE 106 mmol/L (98-107); COR CA(FOR HYPOALB) 8.7 mg/dL (8.5-10.1); CREATININE 0.43 mg/dL (0.55-1.02); GLUCOSE 85 mg/dL (65-99); MAGNESIUM 1.9 mg/dL (2.0-2.9); SODIUM 139 mmol/L (136-145); TOTAL PROTEIN 5.8 g/dL (6.4-8.2); eGFR NON BLACK RACES > 60 (>60)
[2023-02-26 05:31] LABS: POTASSIUM 2.7 mmol/L (3.5-5.1)
[2023-02-26] MEDS ORDERED: CONSULT PHARMACY - POTASSIUM & MAGNESIUM XX SCH (07:00)
[2023-02-26] MEDS: TOPROL XL PO SCH (08:58)
[2023-02-26] MEDS: CYMBALTA PO SCH (08:58)
[2023-02-26] MEDS: FARXIGA PO SCH (08:58)
[2023-02-26] MEDS: ZESTRIL TAB 5 MG PO SCH (08:58)
[2023-02-26] MEDS: K-DUR TAB 20 MEQ PO SCH ×3 (08:59→13:40)
[2023-02-26] MEDS: MAG-OX TAB PO SCH ×2 (08:59→11:16)
[2023-02-26] MEDS: GLUCOTROL PO SCH ×2 (08:59→20:19)
[2023-02-26] MEDS: LEVEMIR SC SCH (09:00)
[2023-02-26] MEDS: PROTONIX INJ 40 MG VIAL IVP SCH (09:00)
--- NOTE | 2023-02-26 11:19 | PCM.PROG ---
Progress Note Progress Note for Day of Date of Exam: 02/26/23 Subjective Subjective: Patient seen at bedside, no acute events. Patient's FSBG has improved and bicarb is normal. She has been tolerating PO intake and feels better. She has been ambulating to the bathroom. Her potassium continues to be low, she is currently on KCl+NS and PO potassium. Labs/imaging reviewed - K:2.7 CO2: 23 Mg 1.9 Plan: Will change to 40mEQ KCl with NS at 125cc/hr, continue PO potassium replacement. Recheck K level at 5pm. Continue Tresiba and SSI. Continue current home medications. Monitor AM labs/imaging. Past Medical Family Social History Allergies: Allergies Sulfa (Sulfonamide Antibiotics) [SULFA] Allergy (Verified 02/22/23 22:04) Review of Systems ROS: No change since H&P Vital Signs and I&O's Vital Signs: Vital Signs Temperature 97.7 F Pulse Rate 66 Pulse Rate 67 Pulse Rate 71 Pulse Rate 75 Pulse Rate 77 Pulse Rate 68 Pulse Rate 67 Pulse Rate 69 Pulse Rate 70 Pulse Rate 69 Respiratory Rate 17 Respiratory Rate 19 Respiratory Rate 12 Respiratory Rate 32 Respiratory Rate 31 Respiratory Rate 13 Respiratory Rate 16 Respiratory Rate 19 Respiratory Rate 13 Blood Pressure 169/91 Blood Pressure 158/78 Blood Pressure 176/86 Blood Pressure 168/85 Blood Pressure 164/83 Blood Pressure 159/77 O2 Sat by Pulse Oximetry 94 O2 Sat by Pulse Oximetry 97 O2 Sat by Pulse Oximetry 97 O2 Sat by Pulse Oximetry 96 O2 Sat by Pulse Oximetry 96 O2 Sat by Pulse Oximetry 94 O2 Sat by Pulse Oximetry 96 O2 Sat by Pulse Oximetry 96 O2 Sat by Pulse Oximetry 97 O2 Sat by Pulse Oximetry 95 Intake and Output: Intake & Output 02/23/23 02/24/23 02/25/23 02/26/23 23:59 23:59 23:59 23:59 Intake Total 5645 / 5645 3235 / 3235 5121 / 5121 959 / 959 Output Total 4700 / 4700 1402 / 1402 Balance 945 / 945 1833 / 1833 5118 / 5118 959 / 959 Physical Exam Oriented: Normal Eyes: Normal Nose: Normal Respiratory: Normal Cardiovascular: Normal Auscultation: Bowel Sounds: Normal Tenderness: Normal Skin: Normal Musculoskeletal: Normal Psychiatric: Normal Mood Description: Calm Affect: Normal Speech Pattern: Clear and Appropriate Laboratory and Diagnostics 02/26/23 04:30 02/26/23 04:30 Labs: Laboratory WBC 5.7 X10^3/uL (3.6-10.0) 02/26/23 04:30 RBC 4.47 X10^6/uL (3.5-5.4) 02/26/23 04:30 Hgb 12.3 g/dL (12.0-16.0) 02/26/23 04:30 Hct 36.2 % (36.0-47.0) 02/26/23 04:30 MCV 81.1 fL (80.0-100.0) 02/26/23 04:30 MCH 27.6 pg (27.0-34.0) 02/26/23 04: MCHC 34.0 g/dL (33.0-35.0) 02/26/23 04:30 RDW 14.5 % (11.6-16.5) 02/26/23 04:30 Plt Count 125 X10^3/uL (150.0-450.0) L 02/26/23 04:30 MPV 8.9 fL (7.4-11.0) 02/26/23 04:30 Neut % (Auto) 49.7 % (42.0-75.0) 02/26/23 04:30 Lymph % (Auto) 42.9 % (21.0-51.0) 02/26/23 04:30 [place] % (Auto) 5.9 % (0.0-13.0) 02/26/23 04:30 Eos % (Auto) 0.7 % (0.9-2.9) L 02/26/23 04:30 Baso % (Auto) 0.8 % (0.2-1.0) 02/26/23 04:30 Neut # (Auto) 2.8 x10^3/uL (2.2-4.8) 02/26/23 04:30 Lymph # (Auto) 2.4 X10^3/uL (1.3-2.9) 02/26/23 04:30 [place] # (Auto) 0.3 x10^3/uL (0.3-0.8) 02/26/23 04:30 Eos # (Auto) 0.0 x10^3/uL (0.0-0.2) 02/26/23 04:30 Baso # (Auto) 0.0 X10^3/uL (0.0-0.1) 02/26/23 04:30 Absolute Nucleated RBC 0.1 /100WBC 02/26/23 04:30 Sample Site Rr 02/24/23 05:00 ABG pH 7.340 (7.35-7.45) L 02/24/23 05:00 ABG pCO2 32.0 mmHg (35.0-45.0) L 02/24/23 05:00 ABG pO2 71.0 mmHg (80.0-100.0) L 02/24/23 05:00 ABG HCO3 17.3 mmol/L (22-26) L* 02/24/23 05:00 ABG O2 Saturation 93.0 % (90-100) 02/24/23 05:00 ABG Base Excess -7.5 mmol/L (-2.0-2.0) L 02/24/23 05:00 Gus Test Pos 02/24/23 05:00 A-a Gradient 39.0 mmHg 02/24/23 05:00 FiO2 21.0 02/24/23 05:00 Blood Gas Comments Chris well sw 02/24/23 05:00 Sodium 139 mmol/L (136-145) 02/26/23 04:30 Corrected Sodium TNP 02/26/23 04:30 Potassium 2.7 mmol/L (3.5-5.1) L* 02/26/23 04:30 Chloride 106 mmol/L (98-107) 02/26/23 04:30 Carbon Dioxide 23.1 mmol/L (21-32) 02/26/23 04:30 BUN 5 mg/dL (7-18) L 02/26/23 04:30 Creatinine 0.43 mg/dL (0.55-1.02) L 02/26/23 04:30 Est GFR (MDRD) Af Amer > 60 (>60) 02/26/23 04:30 Est GFR (MDRD) Non-Af > 60 (>60) 02/26/23 04:30 Glucose 85 mg/dL (65-99) 02/26/23 04:30 POC Glucose (mg/dL) 98 mg/dL (65-99) 02/26/23 05:28 Calcium 7.3 mg/dL (8.5-10.1) L 02/26/23 04:30 Corrected Calcium 8.7 mg/dL (8.5-10.1) 02/26/23 04:30 Magnesium 1.9 mg/dL (2.0-2.9) L 02/26/23 04:30 Total Bilirubin 0.50 mg/dL (0.2-1.0) 02/26/23 04:30 AST 30 Units/L (15-37) 02/26/23 04:30 ALT 40 Units/L (12-78) 02/26/23 04:30 Alkaline Phosphatase 171 Units/L (46-116) H 02/26/23 04:30 Total Protein 5.8 g/dL (6.4-8.2) L 02/26/23 04:30 Albumin 2.3 g/dL (3.4-5.0) L 02/26/23 04:30 Globulin 3.5 g/dL (2.5-4.5) 02/26/23 04:30 Albumin/Globulin Ratio 0.7 Ratio (1.1-2.1) L 02/26/23 04:30 Specimen Type Clean catch urine 02/22/23 21: Urine Color Straw (YELLOW) 02/22/23 21: Urine Appearance Clear (CLEAR) 02/22/23 21: Urine pH 5.0 (5.0 - 8.0) 02/22/23 21: Ur Specific [place] 1.015 (1.000-1.030) 02/22/23: Urine Protein 2+ (NEGATIVE) 02/22/23 21: Urine Glucose (UA) 4+ (NEGATIVE) 02/22/23 21: Urine Ketones 4+ (NEGATIVE) 02/22/23: Urine Blood 2+ (NEGATIVE) 02/22/23: Urine Nitrite Negative (NEGATIVE) 02/22/23: Urine Bilirubin Negative (NEGATIVE) 02/22/23: Urine Urobilinogen Normal (NORMAL) 02/22/23 21: Ur Leukocyte Esterase Negative (NEGATIVE) 02/22/23: Urine RBC 0-2 /HPF (0-3) 02/22/23 21:23 Urine WBC None seen /HPF (0-5) 02/22/23 21:23 Ur Squamous Epith Cells Rare /HPF (NEGATIVE) 02/22/23 21: Amorphous Sediment 1+ /HPF (NEGATIVE) 02/22/23 21:23 Urine Bacteria Trace /HPF (NEGATIVE) 02/22/23 21: Urine Mucus Few /HPF (NEGATIVE) 02/22/23 21:23 Ur Culture Indicated? No/not indicated 02/22/23 21: Urine Opiates Screen Negative (NEG=<300) 02/22/23 21: Urine Methadone Screen TNP 02/22/23 21: Ur Barbiturates Screen Negative (NEG=<200) 02/22/23 21: Ur Phencyclidine Scrn Negative (NEG=<25) 02/22/23 21: Ur Amphetamines Screen Negative (NEG=<1000) 02/22/23 21: U Benzodiazepines Scrn Negative (NEG=<200) 02/22/23 21: Urine Cocaine Screen Negative (NEG=<300) 02/22/23 21: U Marijuana (THC) Screen Negative (NEG=<50) 02/22/23 21: Acetone, Semi-Quant Small (NEGATIVE) H 02/26/23 07:28 Plan (1) Hypokalemia: Status: Acute (2) Diabetic ketoacidosis: Status: Acute Qualifiers: Diabetes mellitus complication detail: without coma Diabetes mellitus type: type 2 Qualified Code(s): E11.10 - Type 2 diabetes mellitus with ketoacidosis without coma (3) Hyponatremia: Status: Acute (4) Coronary artery disease: Status: Acute Qualifiers: Associated angina: without angina Coronary Disease-Associated Artery/Lesion type: [place] artery [place] vs. transplanted heart: [place] heart Qualified Code(s): I25.10 - Atherosclerotic heart disease of [place] coronary artery without angina pectoris (5) Diabetes: Status: Acute Qualifiers: Diabetes mellitus complication status: with hyperglycemia Diabetes mellitus terminologist insulin use: with terminologist use Diabetes mellitus type: type 2 Qualified Code(s): E11.65 - Type 2 diabetes mellitus with hyperglycemia; Z79.4 - snf (current) use of insulin
[2023-02-26] MEDS ORDERED: NS + KCL 40 MEQ/L 1,000 ML IV SCH (12:00)
[2023-02-26] MEDS: SNACK - Diabetic Appropriate PO SCH (20:19)
[2023-02-27] MEDS: NS + KCL 20 MEQ/L 1,000 ML IV SCH ×2 (04:09→05:40)
[2023-02-27 04:52] LABS: BASOPHILS # (AUTO) 0.1 X10^3/uL (0.0-0.1); BASOPHILS % (AUTO) 0.8 % (0.2-1.0); EOSINOPHILS # (AUTO) 0.1 x10^3/uL (0.0-0.2); EOSINOPHILS % (AUTO) 1.2 % (0.9-2.9); HEMATOCRIT 37.6 % (36.0-47.0); HEMOGLOBIN 12.9 g/dL (12.0-16.0); LYMPHOCYTES # (AUTO) 2.7 X10^3/uL (1.3-2.9); MEAN CORPUSCULAR HEMOGLOBIN 27.9 pg (27.0-34.0); MEAN CORPUSCULAR HGB CONC 34.2 g/dL (33.0-35.0); MEAN CORPUSCULAR VOLUME 81.5 fL (80.0-100.0); MEAN PLATELET VOLUME 8.7 fL (7.4-11.0); MONOCYTES # (AUTO) 0.4 x10^3/uL (0.3-0.8); MONOCYTES % (AUTO) 5.6 % (0.0-13.0); NEUTROPHILS # (AUTO) 4.1 x10^3/uL (2.2-4.8); NEUTROPHILS % (AUTO) 55.4 % (42.0-75.0); PLATELET COUNT 151 X10^3/uL (150.0-450.0); RED BLOOD COUNT 4.62 X10^6/uL (3.5-5.4); RED CELL DISTRIBUTION WIDTH 14.2 % (11.6-16.5); WHITE BLOOD COUNT 7.4 X10^3/uL (3.6-10.0)
[2023-02-27 05:05] LABS: ALANINE AMINOTRANSFERASE 36 Units/L (12-78); ALBUMIN 2.5 g/dL (3.4-5.0); ALKALINE PHOSPHATASE 193 Units/L (46-116); ASPARTATE AMINO TRANSFERASE 31 Units/L (15-37); BLOOD UREA NITROGEN 5 mg/dL (7-18); CARBON DIOXIDE 25.2 mmol/L (21-32); CHLORIDE 105 mmol/L (98-107); COR CA(FOR HYPOALB) 9.2 mg/dL (8.5-10.1); CREATININE 0.55 mg/dL (0.55-1.02); GLUCOSE 110 mg/dL (65-99); MAGNESIUM 1.9 mg/dL (2.0-2.9); POTASSIUM 3.6 mmol/L (3.5-5.1); SODIUM 138 mmol/L (136-145); TOTAL PROTEIN 6.1 g/dL (6.4-8.2); eGFR NON BLACK RACES > 60 (>60)
[2023-02-27] MEDS ORDERED: CONSULT PHARMACY - POTASSIUM & MAGNESIUM XX SCH (06:00)
[2023-02-27 08:31] VITALS: TEMP 97.3
[2023-02-27] MEDS ORDERED: MAG-OX TAB PO SCH (09:00)
[2023-02-27] MEDS ORDERED: K-DUR TAB 20 MEQ PO SCH (09:00)
[2023-02-27] MEDS: TOPROL XL PO SCH (09:24)
[2023-02-27] MEDS: FARXIGA PO SCH (09:24)
[2023-02-27] MEDS: PROTONIX INJ 40 MG VIAL IVP SCH (09:24)
[2023-02-27] MEDS: CYMBALTA PO SCH (09:24)
[2023-02-27] MEDS: GLUCOTROL PO SCH (09:25)
[2023-02-27] MEDS: ZESTRIL TAB 5 MG PO SCH (09:26)
[2023-02-27] MEDS: LEVEMIR SC SCH (09:27)
[2023-02-27 10:47] VITALS: BP 152/74; PULSE 88; RESP 18; O2SAT 97
== END 2023-02-27 11:15 | disposition home or self-care (01) | DRG 638 ==
LOC: ER 19:52 → ICU 22:32
PROVIDERS: ADMIT Family Medicine; ATTEND Family Medicine
DX: I25.10 Atherosclerotic heart disease of native coronary artery without angina pectoris; E11.10 Type 2 diabetes mellitus with ketoacidosis without coma; E87.1 Hypo-osmolality and hyponatremia; E11.65 Type 2 diabetes mellitus with hyperglycemia; R41.82 Altered mental status, unspecified; E87.6 Hypokalemia; E86.0 Dehydration; Z79.4 Long term (current) use of insulin; E87.5 Hyperkalemia